=== PATIENT | male | born 1980 | race Caucasian/White ===

== ENCOUNTER 2016-12-09 02:41 | Emergency (ER) | payer SELFPAY ==
[~2016-12-09] VITALS: Ht 167.6 cm; Wt 68.5 kg
[~2016-12-09 02:41] MED LIST: ALPR1TAB2 PO; AMO500 PO; DENIES; IBUP-1542 PO
[2016-12-09 03:03] VITALS: Ht 167.6 cm; Wt 68.5 kg
== END 2016-12-09 04:52 | disposition left against medical advice (07) ==
LOC: FTE 02:41
DX: Z53.21 Procedure and treatment not carried out due to patient leaving prior to being seen by health care provider (principal)

== ENCOUNTER 2017-05-02 14:40 | Emergency (ER) | payer MEDICAID ==
[~2017-05-02] VITALS: Wt 70.0 kg
[2017-05-02] MEDS ORDERED: KETOROLAC 30 MG INJ IV STA (15:12)
[2017-05-02] MEDS ORDERED: SOD CHLORIDE 0.9% 1,000 ML IV ONE (15:30)
[2017-05-02 15:43] LABS: BASOPHILS % 0.7 % (0.0-2.0); EOSINOPHILS # 0.2 10^3/ul (0.0-0.5); EOSINOPHILS % 3.5 % (0.0-7.0); HEMATOCRIT 31.6 % (42.0-52.0); HEMOGLOBIN 10.8 g/dl (14.0-18.0); LYMPHOCYTES % 33.2 % (15.0-51.0); MEAN CORPUSCULAR HEMOGLOBIN 29.3 pg (29.0-33.0); MEAN CORPUSCULAR HGB CONC 34.2 g/dl (32.0-37.0); MEAN CORPUSCULAR VOLUME 85.6 fl (82.0-101.0); MEAN PLATELET VOLUME 8.3 fl (7.4-10.4); MONOCYTE # 0.8 10^3/ul (0.3-0.9); NEUTROPHIL # 2.9 10^3/ul (1.6-7.5); NEUTROPHILS % 49.4 % (39.0-77.0); PLATELET COUNT 301 10^3/UL (140-415); RED BLOOD COUNT 3.69 10^6/ul (4.70-6.10); RED CELL DISTRIBUTION WIDTH 13.6 % (11.5-14.5); WHITE BLOOD COUNT 5.9 10^3/ul (4.8-10.8)
[2017-05-02] MEDS ORDERED: CLINDAMYCIN 300 MG INJ IV ONE (16:00)
[2017-05-02 16:04] LABS: ALBUMIN 3.6 g/dl (3.3-4.9); ALBUMIN/GLOBULIN RATIO 1.24; BILIRUBIN,INDIRECT 0.4 mg/dl (0-1.1); BILIRUBIN,TOTAL 0.4 mg/dl (0.2-1.3); CALCIUM 8.6 mg/dl (8.4-10.2); CREATININE 1.05 mg/dl (0.61-1.24); POTASSIUM 3.6 mmol/L (3.5-5.1); TOTAL PROTEIN 6.5 g/dl (6.1-8.1)
[2017-05-02] MEDS ORDERED: IBUP-1542 PO (16:09)
[2017-05-02] MEDS ORDERED: MUPI22OI2 TOP (16:10)
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
[2017-05-02] MEDS ORDERED: BACITRACIN 0.5%/ZINC 28.35 GM OINT TOP ONE (16:30)
== END 2017-05-02 17:36 | disposition home or self-care (01) ==
LOC: FTE 14:40
DX: L03.116 Cellulitis of left lower limb (principal); L03.115 Cellulitis of right lower limb; F17.210 Nicotine dependence, cigarettes, uncomplicated
CPT/HCPCS: 80053; 85025; 96374; 96375; J1885; J7030; Z7502; Z7610

== ENCOUNTER 2017-07-14 22:36 | Emergency (ER) | payer SELFPAY ==
[~2017-07-14] VITALS: Ht 172.7 cm; Wt 66.0 kg
[~2017-07-14 22:36] MED LIST changes: -AMO500 PO; +AMOX500C2 PO; +MUPI22OI2 TOP
[2017-07-14 22:46] VITALS: Ht 172.7 cm; Wt 66.0 kg
== END 2017-07-14 23:55 | disposition left against medical advice (07) ==
LOC: FTE 22:36
DX: Z53.21 Procedure and treatment not carried out due to patient leaving prior to being seen by health care provider (principal)